=== PATIENT | male | born 1985 | race Hispanic/Latino ===

== ENCOUNTER 2017-10-28 22:00 | Emergency (ER) | payer OTHER, SELFPAY ==
[2017-10-28] MEDS ORDERED: HYOSCYAMINE SULFATE 0.125 MG TAB.SUBL SL ONE (22:50)
[2017-10-28] MEDS ORDERED: KETOROLAC TROMETHAMINE 30MG/ML ONE (22:50)
== END 2017-10-28 23:44 | disposition home or self-care (01) ==
LOC: EDH 22:00
DX: K59.00 Constipation, unspecified (principal); R10.12 Left upper quadrant pain
CPT/HCPCS: 74018; 96372; 99283; J1885

== ENCOUNTER 2017-12-23 13:23 | Emergency (ER) | payer OTHER, SELFPAY ==
[2017-12-23] MEDS ORDERED: LIDOCAINE HCL 1% 20 ML VIAL ONE (14:18)
[2017-12-23] MEDS ORDERED: BUPIVACAINE/PF 0.5% 30ML VIAL ONE (14:18)
== END 2017-12-23 14:58 | disposition home or self-care (01) ==
LOC: EDH 13:23
DX: G89.18 Other acute postprocedural pain (principal); K08.89 Other specified disorders of teeth and supporting structures
CPT/HCPCS: 64400; 99284; J3490

== ENCOUNTER 2018-01-10 17:04 | Emergency (ER) | payer OTHER, SELFPAY | END 2018-01-10 19:15 | LOC: EDH 17:04 | DX: R20.2 Paresthesia of skin (principal) | CPT/HCPCS: 99281 ==

== ENCOUNTER 2024-09-30 01:41 | Emergency (ER) | payer BC, SELFPAY ==
[~2024-09-30] VITALS: Ht 175.3 cm; Wt 157.9 kg
[2024-09-30 02:22] LABS: BASOPHILS # (AUTO) 0.08 K/uL (0.00-0.20); BASOPHILS % (AUTO) 0.6 % (0.0-5.0); EOSINOPHILS # (AUTO) 0.13 K/uL (0.00-0.70); EOSINOPHILS % (AUTO) 0.9 % (0.0-8.0); HEMATOCRIT 42.8 % (42-54); IMMATURE GRANULOCYTE ABSOLUTE 0.12 K/uL (0-1); LYMPHOCYTES # (AUTO) 1.8 K/uL (1.0-4.8); LYMPHOCYTES % (AUTO) 12.2 % (21.0-51.0); MEAN CORPUSCULAR HEMOGLOBIN 25.7 pg (27.0-33.0); MEAN CORPUSCULAR VOLUME 80.1 fL (79-99); MONOCYTES # (AUTO) 0.4 K/uL (0.1-1.0); MONOCYTES % (AUTO) 3.1 % (3.0-13.0); NEUTROPHILS # (AUTO) 11.8 K/uL (1.8-7.7); NEUTROPHILS % (AUTO) 82.4 % (40.0-77.0); PLATELET COUNT (AUTO) 280 K/uL (130-400); RED BLOOD CELL COUNT(AUTO) 5.34 MIL/uL (4.50-6.20); RED CELL DISTRIBUTION WIDTH 14.7 % (11.0-15.5); WHITE BLOOD COUNT (AUTO) 14.4 K/uL (4.8-10.8)
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
[2024-09-30 02:24] LABS: CARBON DIOXIDE 29 mmol/L (21-32); CHLORIDE 103 mmol/L (101-111); CREATININE 1.2 mg/dL (0.5-1.3); GLOMERULAR FILTR. RATE CALC 79 mL/min (>90); GLUCOSE,RANDOM 172 mg/dL (70-105); POTASSIUM 3.1 mmol/L (3.5-5.1); SODIUM SERUM 140 mmol/L (136-145); UREA NITROGEN, BLOOD 18 mg/dL (7-18)
[2024-09-30 02:25] LABS: ALCOHOL, BLOOD < 3 mg/dL (0-10)
[2024-09-30] MEDS: morPHINE 2 MG SYG IVP ONE (02:34)
[2024-09-30] MEDS: 0.9%NACL 1000ML 1,000 ML IV ONE (02:34)
--- NOTE | 2024-09-30 02:45 | NUR ---
patient taken to ct scan
--- NOTE | 2024-09-30 02:55 | NUR ---
patient back from ct scan
--- NOTE | 2024-09-30 04:40 | NUR ---
TRANSFER REQUEST TO [facility] [place] INITIATED AT THIS TIME.
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
[2024-09-30] MEDS: PoTASSium BIcarbonate/CIT AC 25 MEQ TABLET.EFF PO ONE (05:09)
[2024-09-30] MEDS: teTANUS/diphthERIA TOXOID [ADULT] 0.5 ML VIAL IM ONE (05:11)
[2024-09-30] MEDS: ZOSYN 3.375GM +NS 50ML IV ONE (05:25)
[2024-09-30] MEDS: hydrALAZine 20MG/ML VIAL IV ONE ×2 (05:25→06:46)
[2024-09-30] MEDS: dexaMETHasone SOD PHOSPHATE 4 MG/ML 1ML VIAL IV ONE (05:26)
[2024-09-30 06:10] VITALS: TEMP 98
[2024-09-30] MEDS ORDERED: AMOX-426 PO (06:11)
[2024-09-30] MEDS ORDERED: METH4TAB3 PO (06:11)
[2024-09-30] MEDS ORDERED: OXYM30SP27 NS (06:11)
[2024-09-30 07:56] VITALS: BP 180/105; PULSE 80; RESP 17; O2SAT 99
--- NOTE | 2024-09-30 08:29 | HMCIMG ---
CT HEAD/BRAIN W/O CONTRAST HISTORY: Disc also COMPARISON: None TECHNIQUE: Multiple sequential axial images of the head were obtained from the base of the skull through vertex. Patient was not given contrast through intravenous route. FINDINGS: The ventricles and extraventricular CSF spaces are nondilated for patient's age. There is no midline shift, mass effect or herniation. No acute intracranial bleed is seen. Visualized portion of the paranasal sinuses are grossly within normal limits. Nondisplaced fracture is seen of the nasal bone with adjacent soft tissue swelling. There is frontal scalp soft tissue swelling bilaterally and left periorbital soft tissue swelling. IMPRESSION: 1. No acute intracranial bleed is seen. Nondisplaced fracture is seen of the nasal bone with adjacent soft tissue swelling. There is frontal scalp soft tissue swelling bilaterally and left periorbital soft tissue swelling. CT was performed with one or more following dose reduction techniques: automated exposure control, adjustment of the mA and kv according to patient's size, or use of a iterative reconstruction technique.
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
== END 2024-09-30 08:13 | disposition home or self-care (01) ==
LOC: EDH 01:41
DX: S02.2XXA Fracture of nasal bones, initial encounter for closed fracture (principal); S01.81XA Laceration without foreign body of other part of head, initial encounter; Y04.0XXA Assault by unarmed brawl or fight, initial encounter; Y93.89 Activity, other specified; Y92.89 Other specified places as the place of occurrence of the external cause; Y99.8 Other external cause status
CPT/HCPCS: 99285; 70450; 96365; 96375; 80048; 85025; 36415; 90714; 70486; 90471; 12001; 96376; J1100; J2270; J7030; J0360 ×2; J2543; 12011